=== PATIENT | male | born 2000 | race Hispanic/Latino ===

== ENCOUNTER 2021-02-09 20:51 | Observation (INO) | payer OTHER ==
[~2021-02-09] VITALS: Ht 170.2 cm; Wt 83.0 kg
[2021-02-09 21:09] LABS: BASOPHILS % (AUTO) 0.7 % (0.0-5.0); EOSINOPHILS % (AUTO) 3.4 % (0.0-8.0); HEMATOCRIT 40.7 % (42-54); LYMPHOCYTES % (AUTO) 29.8 % (21.0-51.0); MEAN CORPUSCULAR HEMOGLOBIN 28.7 pg (27.0-33.0); MEAN CORPUSCULAR HGB CONC 33.2 g/dL (32.0-36.0); MEAN CORPUSCULAR VOLUME 86.6 fL (80-100); MONOCYTES % (AUTO) 11.5 % (3.0-13.0); NEUTROPHILS % (AUTO) 54.3 % (40.0-77.0); PLATELET COUNT (AUTO) 284 K/uL (130-400); RED CELL DISTRIBUTION WIDTH 13.4 % (11.0-15.5); WHITE BLOOD COUNT (AUTO) 7.4 K/uL (4.8-10.8)
[2021-02-09 21:19] LABS: POTASSIUM 3.6 mmol/L (3.5-5.1)
[2021-02-09 21:23] LABS: ALBUMIN 4.2 g/dL (3.5-5.0); BILIRUBIN,TOTAL 0.3 mg/dL (0.2-1.0); TOTAL PROTEIN, SERUM 7.4 g/dL (6.0-8.3)
[2021-02-09 21:26] LABS: APPEARANCE,URINE Clear (CLEAR); BILIRUBIN,URINE Negative (NEGATIVE); COLOR,URINE Yellow (YELLOW); GLUCOSE, URINE (UA) Negative (NEGATIVE); KETONES,URINE Negative (NEGATIVE); LEUKOCYTE ESTERASE ,URINE Negative (NEGATIVE); NITRATE,URINE Negative (NEGATIVE); OCCULT BLOOD,URINE Negative (NEGATIVE); PH,URINE 6.5 (5.0-8.0); PROTEIN,URINE Negative (NEGATIVE)
[2021-02-09 23:45] LABS: INR 0.94 (0.85-1.15); PROTHROMBIN TIME 10.3 SEC (9.6-11.6)
[2021-02-09 23:46] LABS: PARTIAL THROMBOPLASTIN TIME 30.5 SEC (26.3-35.5)
[2021-02-09] MEDS: LACTATED RINGERS 1000ML 1,000 ML IV SCH (23:59)
[2021-02-10] MEDS ORDERED: MORPHINE 4 MG SYG IV PRN
[2021-02-10] MEDS ORDERED: ONDANSETRON 4MG INJ IV PRN
[2021-02-10] MEDS ORDERED: MORPHINE 2 MG SYG IV PRN
[2021-02-10] MEDS ORDERED: LORAZEPAM 2 MG/ML 1 ML VIAL IVP PRN (00:30)
[2021-02-10] MEDS ORDERED: PHARMACY COMMUNICATION MISC PRN (00:30)
[2021-02-10 01:15] VITALS: BP 118/67
[2021-02-10] MEDS ORDERED: KETOROLAC 30MG VIAL (30MG/ML) IV ONE (03:00)
[2021-02-10 04:20] VITALS: BP 114/61
[2021-02-10 05:19] LABS: BASOPHILS % (AUTO) 0.8 % (0.0-5.0); EOSINOPHILS % (AUTO) 3.7 % (0.0-8.0); HEMATOCRIT 39.5 % (42-54); LYMPHOCYTES % (AUTO) 35.5 % (21.0-51.0); MEAN CORPUSCULAR HEMOGLOBIN 28.7 pg (27.0-33.0); MEAN CORPUSCULAR HGB CONC 33.7 g/dL (32.0-36.0); MEAN CORPUSCULAR VOLUME 85.3 fL (80-100); MONOCYTES % (AUTO) 12.7 % (3.0-13.0); PLATELET COUNT (AUTO) 272 K/uL (130-400); RED BLOOD CELL COUNT(AUTO) 4.63 MIL/uL (4.50-6.20); RED CELL DISTRIBUTION WIDTH 13.4 % (11.0-15.5); WHITE BLOOD COUNT (AUTO) 6.2 K/uL (4.8-10.8)
[2021-02-10 05:29] LABS: CREATININE 0.9 mg/dL (0.5-1.5); MAGNESIUM 2.3 mg/dL (1.80-2.40); PHOSPHORUS 4.9 mg/dL (2.5-4.9); POTASSIUM 3.8 mmol/L (3.5-5.1)
[2021-02-10 08:00] VITALS: BP 97/59
[2021-02-10] MEDS: LACTATED RINGERS 1000ML 1,000 ML IV SCH ×2 (10:00→20:00)
[2021-02-10] MEDS: FAMOTIDINE 20MG VIAL IV SCH ×2 (10:02→20:44)
[2021-02-10 12:00] VITALS: BP 136/85
[2021-02-10 16:00] VITALS: BP 110/74
[2021-02-10] MEDS ORDERED: PEG 3350/NA SULF,BICARB,CL/KCL 4000 ML SOLN PO SCH (18:00)
[2021-02-10 20:00] VITALS: BP 122/79
[2021-02-11] VITALS (12 sets, daily range): BP systolic 90–138; BP diastolic 38–89
[2021-02-11 08:38] LABS: BASOPHILS % (AUTO) 0.8 % (0.0-5.0); EOSINOPHILS % (AUTO) 5.4 % (0.0-8.0); HEMATOCRIT 42.3 % (42-54); MEAN CORPUSCULAR HGB CONC 33.3 g/dL (32.0-36.0); MEAN CORPUSCULAR VOLUME 86.9 fL (80-100); MONOCYTES % (AUTO) 12.3 % (3.0-13.0); NEUTROPHILS % (AUTO) 62.3 % (40.0-77.0); PLATELET COUNT (AUTO) 258 K/uL (130-400); RED BLOOD CELL COUNT(AUTO) 4.87 MIL/uL (4.50-6.20); RED CELL DISTRIBUTION WIDTH 13.2 % (11.0-15.5); WHITE BLOOD COUNT (AUTO) 6.1 K/uL (4.8-10.8)
[2021-02-11 08:52] LABS: INR 1.03 (0.85-1.15); PROTHROMBIN TIME 11.2 SEC (9.6-11.6)
[2021-02-11 08:53] LABS: ALBUMIN 3.9 g/dL (3.5-5.0); BILIRUBIN,TOTAL 0.7 mg/dL (0.2-1.0); CREATININE 1.1 mg/dL (0.5-1.5); POTASSIUM 3.9 mmol/L (3.5-5.1); TOTAL PROTEIN, SERUM 7.2 g/dL (6.0-8.3)
[2021-02-11] MEDS: FAMOTIDINE 20MG VIAL IV SCH (09:12)
[2021-02-11] MEDS: LACTATED RINGERS 1000ML 1,000 ML IV SCH ×2 (09:12→16:00)
[2021-02-11] MEDS ORDERED: PROPOFOL 10 MG/ML 20ML VIAL IV ONE ×2 (11:29→11:30)
[2021-02-11] MEDS ORDERED: MIDAZOLAM HCL 1 MG/ML 2ML VIAL ONE (11:29)
== END 2021-02-11 20:20 | disposition left against medical advice (07) ==
LOC: EDH 20:51 → EDHIP 23:40 → 3BH 02-10 00:17
PROVIDERS: ADMIT Hospitalist; ATTEND Hospitalist
DX: K57.91 Diverticulosis of intestine, part unspecified, without perforation or abscess with bleeding (principal); Z20.822 Contact with and (suspected) exposure to COVID-19; K76.0 Fatty (change of) liver, not elsewhere classified; K76.89 Other specified diseases of liver; F10.10 Alcohol abuse, uncomplicated; D62 Acute posthemorrhagic anemia; F12.90 Cannabis use, unspecified, uncomplicated; K35.80 Unspecified acute appendicitis; K55.20 Angiodysplasia of colon without hemorrhage; K64.4 Residual hemorrhoidal skin tags; Z93.3 Colostomy status; Z53.29 Procedure and treatment not carried out because of patient's decision for other reasons
CPT/HCPCS: 36415 ×3; 45378; 74176; 80048; 80053 ×2; 81003; 82270; 83630; 83690; 83735; 84100; 85025 ×3; 85610 ×2; 85730 ×2; 86850; 86900; 86901; 87046; 87635; 93005; 96361; 96374; 96375; 96376 ×2; 99285; A4215 ×2; A4221; A4222; A4223; A4606; A4620; A4663; G0378 ×42; J1885; J2250; J2270; J2405; J2704 ×2; J3490 ×3; J7120

== ENCOUNTER 2021-06-29 14:10 | Emergency (ER) | payer OTHER ==
[~2021-06-29] VITALS: Ht 170.2 cm; Wt 90.7 kg
[2021-06-29] MEDS ORDERED: FLUT16H NASAL (14:38)
[2021-06-29] MEDS ORDERED: LORA10TA7 PO (14:38)
[2021-06-29] MEDS ORDERED: AMOX500C2 PO (14:38)
[2021-06-29 14:46] VITALS: BP 124/74
== END 2021-06-29 14:48 | disposition home or self-care (01) ==
LOC: EDH 14:10
DX: J32.0 Chronic maxillary sinusitis (principal)

== ENCOUNTER 2024-10-10 21:32 | Emergency (ER) | payer OTHER ==
[~2024-10-10] VITALS: Ht 170.2 cm; Wt 93.9 kg
[~2024-10-10 21:32] MED LIST: AMOX500C2 PO; FLUT16H NASAL; LORA10TA7 PO
[2024-10-10 22:18] LABS: IMMATURE GRANULOCYTE ABSOLUTE 0.02 K/uL (0-1); NUCLEATED RED BLOOD CELLS 0.0 % (0.0-0.19); PLATELET COUNT (AUTO) 327 K/uL (130-400); RED BLOOD CELL COUNT(AUTO) 5.10 MIL/uL (4.50-6.20); RED CELL DISTRIBUTION WIDTH 14.0 % (11.0-15.5); WHITE BLOOD COUNT (AUTO) 7.7 K/uL (4.8-10.8)
[2024-10-10 22:25] LABS: CREATININE 0.8 mg/dL (0.5-1.3); GLOMERULAR FILTR. RATE CALC 127.0 mL/min (>90); GLUCOSE,RANDOM 98.0 mg/dL (70-105); SODIUM SERUM 135.0 mmol/L (136-145); UREA NITROGEN, BLOOD 14.0 mg/dL (7-18)
[2024-10-10 22:30] LABS: CREATINE KINASE, TOTAL 228.0 U/L (21-232)
--- NOTE | 2024-10-10 22:43 | EKG ---
[facility] Test Date: 2024-10-10 Test Time: 22:38:11 Pat Name: MÓNICA HIGHTOWER Department: [facility] Room: Gender: M Bill Clerk: [id number] : 2000 Requested By: HAILEY CAMARILLO Order Number: [id number] Reading MD: Mckenzie Maya Measurements Intervals [place] Rate: 60 P: -22 ME: 142 QRS: 177 QRSD: 107 T: 40 QT: 396 QTc: 400 Interpretive Statements Sinus rhythm Atrial premature complex Probable right ventricular hypertrophy Compared to ECG 02/10/2021 00:09:27 Atrial premature complex(es) now present Right-axis deviation no longer present Electronically Signed On 10-11-2024 08:32:23 CDT by Mckenzie Maya Please click the below link to view image of tracing.
--- NOTE | 2024-10-10 23:45 | ERN ---
ED Note History of Present Illness Stated Complaint: C/O LEFT SHOULDER PAIN,TINGLING TO FACE Chief Complaint: Shoulder Injury/Pain Time Seen by MD: 21:39 Time Seen by Midlevel: 21:39 Dictation: The patient is a 23-year-old male with history of anxiety, abdominal surgery who presents to the emergency department with complaints of a generalized tingling. Patient reports he was at his work and started getting tingling to bilateral hands tingling to his lips and tingling to his lower extremities. Patient reports he thought he was having an anxiety attack or a heat stroke. Reports he works outside. Patient reported that later in the afternoon the symptoms had subsided but he looked in the Internet and he read that he might be having a stroke and became concerned so he came to the ER. Patient reports a that he occasionally has left shoulder pain. Denies any trauma. Patient denies any chest pain or shortness of breath. Allergies: Coded Allergies: No Known Drug Allergies (Unverified Allergy, Unknown, 02/09/21) Home Meds Active Scripts Loratadine (Loratadine) 10 Mg Tablet, 10 MG PO DAILY for 30 Days, #30 TAB Prov:JOSEE MARROQUIN MD 06/29/21 Fluticasone Propionate (Flonase Nasal [place]) 50 Mcg/[facility] [place], 50 MCG NASAL BID for 7 Days, #14 SPRAY Prov:JOSEE MARROQUIN MD 06/29/21 Amoxicillin (Amoxicillin) 500 Mg Capsule, 500 MG PO TID for 7 Days, #21 CAP Prov:JOSEE MARROQUIN MD 06/29/21 Past Medical History Past Medical History: No Pertinent History Surgical History: None RN Note Reviewed/Agreed w/PFSH: Yes Review of System Dictation Constitutional: Negative for fever,chills, and weight loss Eyes: Negative for injury, pain,redness, and discharge ENT: Negative for injury,pain or swelling Cardiovascular: Negative for chest pain, palpitations, and edema Respiratory: Negative for shortness of breath, cough, and wheezing, Abdomen/GI: Negative for abdominal pain, nausea, vomiting, diarrhea, and constipation Back: Negative for injury and pain : Negative for injury, bleeding and discharge MS/Extremity: Negative for injury and deformity Skin: Negative for rash, and discoloration Neuro: Negative for headache, weakness, numbness,and seizure generalized tingling Psych: Negative for suicide ideation, homicidal ideation, and hallucinations Initial Vital Sign VS Vital Signs Date Time Temp Pulse Resp B/P (MAP) Pulse Ox O2 Delivery O2 Flow Rate FiO2 10/10/24 21:35 98.8 76 20 124/88 99 Room Air Physical Exam Dictation Vital Signs reviewed General Appearance: Alert, oriented x 3, no acute distress, well developed, nourished. Head and Face: non-traumatic. Eyes: PERRL, pink conjunctivas, eyelid no trauma, anterior chamber with arcus senilis. Ears: Pinnas intact and no signs of trauma or erythema ear canals clear and no discharge TM no erythema Nose: No discharge, no bleeding. Oropharynx: Mouth normal, tongue pink. pharynx clear,no erythema, tonsils no exudates, no abscesses noted, mucous membrane moist Neck: Supple, non-tender, no thyromegaly, no masses, no JVD, no bruits Breast:Deferred Chest:No tenderness, no crepitus, no paradoxical movement, no retractions Lungs:Clear, well-ventilated, symmetric, no rales, no wheezing, no rhonchi, no stridor, good breath sounds bilaterally Heart: Regular rate, regular rhythm, no murmur, no gallops Vascular: no peripheral edema, Abdomen: Soft, positive bowel sounds, nondistended, no guarding, nontender, no rebound, no masses no hepatomegaly, no splenomegaly, no Verma's sign, no hernias. Rectal: Deferred Genital: Deferred Neurological: Normal speech, motor function intact, sensory function intact , upper extremities equal in strength, lower extremities equal in strength, no facial droop, no slurred speech Musculoskeletal: Neck nontender, full range of motion, back nontender, full range of motion, Extremities: nontender, full range of motion Skin: Color pink, dry, no turgor, no rash, no lacerations, no abrasions, no contusions. Lymphatic: Deferred Results (Laboratory/Radiology) Laboratory/Radiology Laboratory Tests Test 10/10/24 22:07 White Blood Count 7.7 K/uL (4.8-10.8) Red Blood Count 5.10 MIL/uL (4.50-6.20) Hemoglobin 13.8 g/dL (14.0-18.0) L Hematocrit 42.2 % (42-54) Mean Corpuscular Volume 82.7 fL (79-99) Mean Corpuscular Hemoglobin 27.1 pg (27.0-33.0) Mean Corpuscular Hemoglobin Concent 32.7 g/dL (32.0-36.0) Red Cell Distribution Width 14.0 % (11.0-15.5) Platelet Count 327 K/uL (130-400) Mean Platelet Volume 9.3 fL (7.5-10.5) Immature Granulocyte % (Auto) 0.3 % (0-1) Neutrophils (%) (Auto) 51.4 % (40.0-77.0) Lymphocytes (%) (Auto) 33.1 % (21.0-51.0) Monocytes (%) (Auto) 9.6 % (3.0-13.0) Eosinophils (%) (Auto) 4.7 % (0.0-8.0) Basophils (%) (Auto) 0.9 % (0.0-5.0) Neutrophils # (Auto) 4.0 K/uL (1.8-7.7) Lymphocytes # (Auto) 2.6 K/uL (1.0-4.8) Monocytes # (Auto) 0.7 K/uL (0.1-1.0) Eosinophils # (Auto) 0.36 K/uL (0.00-0.70) Basophils # (Auto) 0.07 K/uL (0.00-0.20) Absolute Immature Granulocyte (auto 0.02 K/uL (0-1) Nucleated Red Blood Cells 0.0 % (0.0-0.19) Sodium Level 135 mmol/L (136-145) L Potassium Level 3.6 mmol/L (3.5-5.1) Chloride Level 100 mmol/L (101-111) L Carbon Dioxide Level 29 mmol/L (21-32) Blood Urea Nitrogen 14 mg/dL (7-18) Creatinine 0.8 mg/dL (0.5-1.3) Glomerular Filtration Rate Calc 127 mL/min (>90) Random Glucose 98 mg/dL (70-105) Total Calcium 8.8 mg/dL (8.5-10.1) Magnesium Level 2.00 mg/dL (1.80-2.40) Total Creatine Kinase 228 U/L (21-232) Troponin I High Sensitivity 45 ng/L (4-75) REASON: pain ORDERING PHYSICIAN: HAILEY CAMARILLO [employer] PROCEDURE: SHOL 2V LT - SHOULDER COMP 2+VWS LT EXAM: CR Left Shoulder, 2 views CLINICAL HISTORY: Pain. COMPARISON: None provided. FINDINGS: No acute fracture or aggressive appearing osseous lesion. Unremarkable joint spaces. The soft tissues are unremarkable. IMPRESSION: No acute bony abnormality is evident. /[place] Labs Reviewed?: Yes EKG: (+) rhythm (Sinus rhythm) EKG Comment: Date:10/10/2024 Time:2237 Ventricular rate:60 GA interval:142 QRS duration:107 QT/QTc:396/400 EKG interpretation: Sinus rhythm, PACs Reviewed by ED Attending no STEMI ED Course ED Course Orders Procedure Category Date Status Time Cbc With Differential LAB 10/10/24 Complete 21:58 Creatine Kinase, Total LAB 10/10/24 Complete 21:58 Basic Metabolic Panel LAB 10/10/24 Complete 21:58 Magnesium LAB 10/10/24 Complete 21:58 12 Lead Ekg Tracing- EKG 10/10/24 Complete Technical 22:28 Shoulder Comp 2+Vws Lt RAD 10/10/24 Resulted 22:28 Troponin I High LAB 10/10/24 Complete Sensitivity 22:28 Drug Screen Urine LAB 10/10/24 Logged 22:28 Vital Signs Date Time Temp Pulse Resp B/P (MAP) Pulse Ox O2 Delivery O2 Flow Rate FiO2 10/10/24 21:35 98.8 76 20 124/88 99 Room Air Medical Decision Making MDM The patient is a 23-year-old male with history of anxiety, abdominal surgery who presents to the emergency department with complaints of a generalized tingling. Patient reports he was at his work and started getting tingling to bilateral hands tingling to his lips and tingling to his lower extremities. Patient reports he thought he was having an anxiety attack or a heat stroke. Reports he works outside. Patient reported that later in the afternoon the symptoms had subsided but he looked in the Internet and he read that he might be having a stroke and became concerned so he came to the ER. Patient reports a that he occasionally has left shoulder pain. Denies any trauma. Patient denies any chest pain or shortness of breath. CBC showed no leukocytosis, no anemia, chemistry showed mild hypo natremia, hypochloremia, negative CK level, negative troponin. No obvious abnormality seen on x-ray. Patient has symptoms likely related to an anxiety attack. On ph ysical exam patient is in no acute distress, stable vital signs, neurologically intact. Nontoxic appearance Patient will be discharged to follow up with PCP. Differential diagnosis: Anxiety, ACS, electrolyte imbalance, dehydration Need for hospitalization: Patient does not meet criteria for hospitalization. There are no social concerns with this patient. DX & DISP Disposition: Discharge Departure Impression: Primary Impression: Anxiety Additional Impression: Tingling in extremities Condition: Stable Additional Instructions: Your labs were unremarkable. Your your x-ray did not show any obvious abnormalities. Please follow up with the primary doctor in 1-2 days. If anything worsens please return to ER. FOLLOW-UP WITH PRIMARY CARE PROVIDER IN 1 TO 2 DAYS. TAKE MEDICATIONS DIRECTED HERE IN THE EMERGENCY ROOM. OKAY TO CONTINUE HOME MEDICATIONS UNLESS OTHERWISE DISCUSSED DURING YOUR VISIT IN THE EMERGENCY ROOM TODAY. RETURN TO YOUR NEAREST EMERGENCY ROOM IF SYMPTOMS WORSEN OR IF THERE IS NO IMPROVEMENT. CALL 911 IF YOU NEED IMMEDIATE ASSISTANCE. TAKE TYLENOL [id number] NEEDED AND IF NO CONTRAINDICATIONS ARE PRESENT. INCREASE ORAL HYDRATION. A WOUND CULTURE OR URINE CULTURE WAS ORDERED HERE IN THE EMERGENCY ROOM DEPARTMENT PLEASE FOLLOW-UP WITH PRIMARY CARE PROVIDER AND ADVISE THEM TO GET REPEAT PORTS FROM OUR FACILITY. IF YOU HAD ANY STEFANI WRAP/SPLINTS THAT WERE APPLIED HERE, PLEASE DO NOT REMOVE THEM UNTIL YOU SEE YOUR PRIMARY CARE OR SPECIALTY. Referrals: SELF,REFERRAL (PCP) Time of Disposition: 23:44 I have reviewed the case, and I agree with, Diagnosis and Plan HAILEY CAMARILLO [employer] Oct 10, 2024 23:45
--- NOTE | 2024-10-10 23:55 | HMCIMG ---
EXAM: CR Left Shoulder, 2 views CLINICAL HISTORY: Pain. COMPARISON: None provided. FINDINGS: No acute fracture or aggressive appearing osseous lesion. Unremarkable joint spaces. The soft tissues are unremarkable. IMPRESSION: No acute bony abnormality is evident. /[place]
[2024-10-11 00:15] VITALS: BP 131/72; PULSE 69; RESP 20; TEMP 98.6; O2SAT 69
== END 2024-10-11 00:16 | disposition home or self-care (01) ==
LOC: EDH 21:32
DX: F41.9 Anxiety disorder, unspecified (principal); R20.2 Paresthesia of skin; Z79.899 Other long term (current) drug therapy
CPT/HCPCS: 36415; 73030; 80048; 80305; 82550; 83735; 84484; 85025; 93005; 99285